=== PATIENT | male | born 1955 | race Caucasian/White ===

== ENCOUNTER → 2020-06-18 | Outpatient (CLI) | payer BC, OTHER | LOC: SJCVCIMAG 11:22 | PROVIDERS: ATTEND Internal Medicine | DX: I08.2 Rheumatic disorders of both aortic and tricuspid valves (principal) ==

== ENCOUNTER → 2020-06-21 | Outpatient (CLI) | payer BC, OTHER | LOC: SJCVCIMAG 07:06 | PROVIDERS: ATTEND Internal Medicine | DX: R00.0 Tachycardia, unspecified (principal); I49.3 Ventricular premature depolarization; I25.10 Atherosclerotic heart disease of native coronary artery without angina pectoris; R53.83 Other fatigue; I10 Essential (primary) hypertension; E78.5 Hyperlipidemia, unspecified; E66.9 Obesity, unspecified; Z88.8 Allergy status to other drugs, medicaments and biological substances; Z79.899 Other long term (current) drug therapy; Z87.891 Personal history of nicotine dependence ==

== ENCOUNTER → 2021-01-04 | Outpatient (CLI) | payer BC, OTHER | LOC: SJCVC 09:56 | PROVIDERS: ATTEND Internal Medicine Cardiovascular Disease | DX: I49.3 Ventricular premature depolarization (principal); I10 Essential (primary) hypertension; E66.9 Obesity, unspecified; R06.00 Dyspnea, unspecified; E78.5 Hyperlipidemia, unspecified; I25.10 Atherosclerotic heart disease of native coronary artery without angina pectoris; G47.33 Obstructive sleep apnea (adult) (pediatric); Z88.8 Allergy status to other drugs, medicaments and biological substances; Z79.899 Other long term (current) drug therapy; Z87.891 Personal history of nicotine dependence; Z72.89 Other problems related to lifestyle ==

== ENCOUNTER → 2021-02-07 | Outpatient (CLI) | payer OTHER, BC ==
--- NOTE | 2021-02-18 19:32 | SLE ---
[facility] [place] [address] POLYSOMNOGRAPHY STUDY Name: EVA VALE Room #: [facility]#: [id number] Admission: 02/07/21 Attend Phys: Linden Yip MD Discharge: Date of : 55 Report #: [id number] THIS REPORT FOR: cc: Esme Ramos MD, Melanie MD Khan, Aman U. MD ~ cc: Linden Yip MD DATE OF SERVICE: 02/08/2021 ATTENDING PHYSICIAN: Dr. Linden Yip. The patient is 65 years old who weighs 233 pounds with a BMI of 32.5. The patient's [place] score was 7. The patient underwent home sleep study performed at [place] sleep lab. Total recording time was 430 minutes. During the night study, the patient had 9 obstructive apneas, no central or mixed apneas and 63 hypopneas. The patient's AHI was 10.5 per hour with a supine AHI of 10.6 per hour. Nocturnal oximetry study revealed an average oxygen saturation of 91% with lowest of 76%. 68 minutes were spent with oxygen saturation less than 90% and 8 minutes with saturation less than 85%. Mean heart rate 79 beats per minute with a maximum of 108 beats per minute. IMPRESSION: 1. Mild obstructive sleep apnea at an AHI of 10.5 per hour. 2. Nocturnal hypoxia secondary to obstructive sleep apnea. RECOMMENDATIONS: 1. The patient's sleep apnea is mild. Consider weight loss as initial form of treatment. 2. If the patient has comorbid conditions or is clinically symptomatic, then consider treatment of sleep apnea with either CPAP versus oral appliance. 3. If the patient does not undergo CPAP titration, then the patient would be eligible for nocturnal oxygen. 4. Avoid [employer] depressants. 5. Cautioned regarding driving until symptoms of sleep apnea resolve with above recommendations. <ELECTRONICALLY SIGNED> By: aCrroll Penaloza MD 02/18/21 [id number] Carroll Penaloza MD /nt
== END ==
LOC: SLEEPLAB 11:05
PROVIDERS: ATTEND Internal Medicine Pulmonary Disease
DX: G47.33 Obstructive sleep apnea (adult) (pediatric) (principal); R09.02 Hypoxemia